=== PATIENT | male | born 1955 | race Caucasian/White ===

== ENCOUNTER 2020-12-25 17:28 | Emergency (ER) | payer MEDICARE, OTHER, SELFPAY ==
[2020-12-25 17:41] VITALS: BP 152/68; PULSE 58; RESP 16; TEMP 36.3; O2SAT 96
--- NOTE | 2020-12-25 17:51 | ED.SKABFB ---
HPI - Skin/Abscess/Foreign Bdy General Chief complaint: Skin/Abscess/Foreign Body Stated complaint: Bug Bite Time Seen by Provider: 12/25/20 17:45 Source: patient and RN notes reviewed Mode of arrival: ambulatory Limitations: no limitations History of Present Illness HPI narrative: 65-year-old male presents to the [facility] with complaints of an insect bite to the left lower abdomen. States he noticed the bite a couple of days ago and since it has been getting red, warm and extremely itchy. Patient has a history of diabetes. States that he is visiting from out of town. Related Data Allergies Allergy/AdvReac Type Severity Reaction Status Date / Time No Known Allergies Allergy Verified 12/25/20 17:34 Review of Systems Review of Systems: All systems reviewed & are unremarkable except as noted in HPI and below Constitutional: Constitutional: Reports no additional constitutional complaints, Denies chills, Denies fever(s) and Denies weakness Cardiovascular: Cardiovascular: Reports no additional cardiovascular complaints and Denies chest pain Respiratory: Respiratory: Reports no additional respiratory complaints, Denies cough, Denies dyspnea and Denies wheezing Gastrointestinal: Gastrointestinal: Reports no additional gastrointestinal complaints, Denies abdominal pain, Denies diarrhea, Denies nausea and Denies vomiting Musculoskeletal: Musculoskeletal: Reports no additional musculoskeletal complaints Integumentary/Breasts: Skin/Breast: Reports as per HPI and Reports erythema (Left lower abdominal) Neurologic: Reports system reviewed and no additional complaints, except as documented Psychiatric: Psychiatric: Reports no additional psychiatric complaints Endocrine: Endocrine: Reports no additional endocrine complaints PMFSH Comments At the time of my signature, I reviewed and agree with the nursing past medical, surgical, social, and family history. There is no relevant family history pertinent to the patient complaint. Exam Const: General: healthy appearing and no acute distress Nutritional Appearance: well nourished and obese morbidly obese Orientation/consciousness: patient oriented x3 Limitations: no limitations HENMT: Head: normal to inspection Neck: Neck: normal visual inspection, no lymphadenopathy and no meningeal signs Chest: Chest palpation & inspection: normal inspection of the chest Resp: Effort & Inspection: normal respiratory effort and no use of accessory muscles Auscultation: clear to auscultation bilaterally, no crackles, no rales, no rhonchi and no wheezes GI: GI Palp: Yes Soft to palpation and Yes Tenderness to palpation present (GI) Back/Spine/Pelvis: Back: no CVA tenderness Skin: Wounds: wounds noted (Left lower abdomen 3 cm redness with a scab in the center. Itchy) Neuro: General: patient oriented x3, moves all extremities, no meningeal signs and no focal motor deficits Speech: normal speech Gait exam (Neuro): Normal gait present Extrem: General: normal to inspection Psych: Appearance: grossly normal and well kempt Mental Status: mental status grossly normal Affect: normal affect Attitude: cooperative Thought content: Yes Normal thought content present Course Course Emergency Course: Discharge instructions reviewed with patient, as well as provided in writing per nursing staff. The instructions also include specific and strict return/GO TO THE ER as well as f/u information. All questions have been answered, and the patient deny any further questions with discharge and discharge plan. Vital Signs Vital signs: Vital Signs Temperature 97.3 F L 12/25/20 17:41 Pulse Rate 58 L 12/25/20 17:41 Respiratory Rate 16 12/25/20 17:41 Blood Pressure 152/68 H 12/25/20 17:41 Pulse Oximetry 96 12/25/20 17:41 Temperature 97.3 F L 12/25/20 17:41 Pulse Rate 58 L 12/25/20 17:41 Respiratory Rate 16 12/25/20 17:41 Blood Pressure 152/68 H 12/25/20 17:41 Pulse Oximetry 96
== END 2020-12-25 18:00 | disposition home or self-care (01) ==
PROVIDERS: Emergency Provider Nurse Practitioner
DX: L03.311 Cellulitis of abdominal wall (principal); S30.861A Insect bite (nonvenomous) of abdominal wall, initial encounter; W57.XXXA Bitten or stung by nonvenomous insect and other nonvenomous arthropods, initial encounter; E78.00 Pure hypercholesterolemia, unspecified; I10 Essential (primary) hypertension; E11.9 Type 2 diabetes mellitus without complications
CPT/HCPCS: 99203; G0463